=== PATIENT | male | born 1950 | race Caucasian/White ===

== ENCOUNTER 2017-02-26 11:22 | Observation (INO) | payer MEDICARE, MEDICAID ==
[~2017-02-26] VITALS: Ht 167.6 cm; Wt 75.0 kg
[~2017-02-26 11:22] MED LIST: ANTIVERT PO; CIPROFLOXACN500 MG PO; DENIES CURRENT MEDS; DOXYCYC MONO100 M1 OR; MEDDOSEPAK PO; METRONIDAZOL500 MG PO; NO HOME MEDS; PREDNISONE20 MG OR; PROAIR HFA IN; STERAPRED DS10 MG PO; TORADOL PO; ULTRAM50 M1 PO; ULTRAM50 MG OR; ULTRAM50 MG PO; VENTOLIN HFA IN; ZOFRAN ODT4 MG OR; ZOFRAN ODT4 MG PO; ZPAK PO
--- NOTE | 2017-02-26 11:40 | NUR ---
TO ROOM BY WHEELCHAIR. NURSE BEDSIDE REPORT. IN GOWN AND POSITIONED TO COMFORT
[2017-02-26 12:32] LABS: HEMATOCRIT 42.3 % (39.0-50.0); HEMOGLOBIN 15.2 g/dl (14.0-18.0); IMMATURE GRANULOCYTES 0.4 % (0.0-1.0); MEAN CELL VOLUME 88.1 fL CALC (80.0-100.0); MEAN CORPUSCULAR HGB 31.7 pG CALC (26.0-32.0); MEAN CORPUSCULAR HGB CONC 35.9 g/L CALC (32.0-36.0); NEUT# 7.64 thou/uL (1.82-7.42); RED BLOOD COUNT 4.8 mill/uL (4.70-6.10); RED CELL DISTRI WIDTH 12.6 % (11.5-15.5)
--- NOTE | 2017-02-26 12:44 | NUR ---
PT WITH IV ESTABLISHED, MEDS PROVIDED FOR PAIN RELIEF.
[2017-02-26 12:49] LABS: ALBUMIN 4.6 g/dL (3.2-5.0); ALKALINE PHOSPHATASE 75 u/l (38-126); AMYLASE 88 u/l (30-110); ANION GAP 17 (6-22 (CALC)); BILIRUBIN, TOTAL 0.9 mg/dL (0.0-1.4); BUN 17 mg/dL (8-23); BUN/CREATININE RATIO 21 (12-20 (CALC)); CALCIUM 8.6 mg/dL (8.4-10.2); CARBON DIOXIDE 23 mmol/l (22-30); CHLORIDE 107 mmol/l (95-108); CREATININE 0.8 mg/dL (0.7-1.3); GFR > 60 ML/MIN (>=60 (CALC)); GFR FOR AFR.AMER. > 60 ML/MIN (>=60 (CALC)); GLUCOSE 163 mg/dL (82-115); LIPASE 53 u/l (23-300); POTASSIUM 3.3 mmol/l (3.5-5.1); SGOT/AST 49 u/l (19-48); SGPT/ALT 43 u/l (11-66); SODIUM 143 mmol/l (137-146); TOTAL PROTEIN 7.7 g/dL (6.3-8.2)
--- NOTE | 2017-02-26 14:04 | NUR ---
PT REFUSING TO GIVE A URINE SAMPLE UNLESS WE GIVE HIM SOMETHING TO DRINK. PT ADVISED OF NPO STATUS FOR ABD PAIN. PT LAYING IN BED W/OUT S/S OF DISTRESS.
--- NOTE | 2017-02-26 14:31 | NUR ---
URINE COLLECTED. PT IN PAIN "FROM GIVING URINE SAMPLE". ER AWARE.
[2017-02-26 14:53] LABS: URINE BILIRUBIN - DIPSTICK NEGATIVE (NEGATIVE); URINE BLOOD DIPSTICK NEGATIVE (NEGATIVE); URINE CLARITY CLEAR; URINE COLOR YELLOW; URINE GLUCOSE - DIPSTICK NEGATIVE (NEGATIVE); URINE KETONE 15 mg/dL (NEGATIVE); URINE LEUK ESTERASE NEGATIVE (NEGATIVE); URINE NITRITE - DIPSTICK NEGATIVE (Negative); URINE PH 5.5 (4.5-8.0); URINE PROTEIN - DIPSTICK TRACE mg/dL (NEG-TRACE); URINE SPECIFIC GRAVITY 1.025; URINE UROBILINOGEN - DIPSTICK 0.2 E.U./dL (0.2)
--- NOTE | 2017-02-26 15:28 | NUR ---
SBAR PRINTED TO FLOOR
--- NOTE | 2017-02-26 16:10 | NUR ---
PT ARRIVED TO FLOOR VIA STRETCHER ACCOMPANIED BY RENATE [place]. AMBULATED TO BED WITH 2 STAFF ASSIST. PT UNSTEADY ON FEET. SLURRING WORDS. FALL PRECAUTIONS REINFORCED. BED ALARM SET FOR SAFETY. PT UNABLE TO STAY AWAKE FOR QUESTIONING. UNABLE TO GATHER HISTORY AT THIS TIME. ASSESSMENT COMPLETED. DENIES PAIN. CALL LIGHT REVIEWED AND IN REACH.
--- NOTE | 2017-02-26 16:20 | NUR ---
REPORT PROVIDED TO KAT, PT TAKEN TO FLOOR WITHOUT INCIDENT.
[2017-02-26 16:21] VITALS: BP 135/71
[2017-02-26 18:48] VITALS: BP 125/69
--- NOTE | 2017-02-26 19:25 | NUR ---
PT. IS RESTING IN BED WITH NO DISTRESS NOTED. ASSESSMENT COMPLETED. IV SITE PATENT TO LEFT HAND WITH IVF INFUSING. UPDATED WITH POC. CALL LIGHT IS IN REACH. WILL CONTINUE TO MONITOR.
--- NOTE | 2017-02-26 19:36 | NUR ---
DR. CORRALES IN TO SEE PT. AND UPDATED ON POC.
--- NOTE | 2017-02-26 23:10 | NUR ---
PT. RESTING IN BED WITH EYES CLOSED, NO DISTRESS NOTED. RESP EVEN AND UNLABORED. CALL LIGHT IS IN REACH.
[2017-02-27] VITALS (8 sets, daily range): BP systolic 110–128; BP diastolic 67–82
--- NOTE | 2017-02-27 03:10 | NUR ---
PT. RESTING IN BED WITH EYES CLOSED, RESP EVEN AND UNLABORED. CALL LIGHT IS IN REACH. WILL CONTINUE TO MONITOR.
--- NOTE | 2017-02-27 04:42 | NUR ---
PT. VOIDED 450 ML OF CLEAR NIRU URINE. PT. DENIES ANY NEEDS. CALL LIGHT IS IN REACH. WILL CONTINUE TO MONITOR.
--- NOTE | 2017-02-27 05:30 | NUR ---
PT. RESTING IN BED WITH EYES CLOSED, NO DISTRESS NOTED. RESP EVEN AND UNLABORED. CALL LIGHT IS IN REACH.
--- NOTE | 2017-02-27 07:50 | NUR ---
ASSESSMENT IS COMPLETED> ABD IS SOFT WITH ACTIVE BS. IV SITE IS FREE FROM REDNESS OR EDEMA. PT WANTS A CUP OF COFFEE THIS AM. NO DISTRESS NOTED/. CONTINUE TO OBSERVE AND MONITOR.
--- NOTE | 2017-02-27 08:30 | NUR ---
PT TRANSPORTED TO OR VIA STRETCHER ACCOMPANIED BY STAFF. IV SITE IS FREE FROM REDNESS OR EDEMA.
--- NOTE | 2017-02-27 10:35 | NUR ---
PT ARRIVED BACK FROM OR. VIA STRETCHER ACCOMPANIED BY STAFF. IV SITE IS INTACT, NO REDNESS OR EDEMA. NO DRESSING ON ABD IS SECURED WITH DERMABOND. CONTINUE TO OBSERVE AND MONITOR. SCD'S IN PLACE.
--- NOTE | 2017-02-27 12:15 | NUR ---
PT IS RELAXING IN BED WITH NO DISTRESS NOTED. IV SITE IS FREE FROM REDNESS OR EDEMA. CONTINUE TO OSBERVE AND MONITOR.
--- NOTE | 2017-02-27 14:09 | NUR ---
LEFT A MESSAGE FOR PT'S DAUGHTER TO CALL BACK PT WILL BE READY FOR DISCHARGE. IV SITE IS DISCONTINUED
--- NOTE | 2017-02-27 14:40 | NUR ---
PT AMBULATED OFF THE UNIT TO MEET HIS DAUGHTER FOR DISCHARGE. IV SITE DISCONTINUED CATHETER INTACT. CONTINUE TO OSBERVE AND MONITOR.
--- NOTE | 2017-02-27 14:43 | NUR ---
Discharge instructions given. Patient verbalizes understanding of same. Discharged in stable condition via Wheelchair to Home with family. All belongings sent with pt.
== END 2017-02-27 14:40 | disposition home or self-care (01) ==
LOC: ED 11:22 → ED-I 14:32 → ED 15:23 → MS2 15:24
PROVIDERS: Family Medicine; ADMIT Surgery; ATTEND Surgery
PROC: 0WQF0ZZ Repair Abdominal Wall, Open Approach (ICD-10-PCS; principal; 2017-02-27)
DX: K42.0 Umbilical hernia with obstruction, without gangrene (principal); J44.9 Chronic obstructive pulmonary disease, unspecified; M19.90 Unspecified osteoarthritis, unspecified site; F17.290 Nicotine dependence, other tobacco product, uncomplicated
CPT/HCPCS: J2060; J2710; Q9967

== ENCOUNTER 2021-02-13 17:16 | Emergency (ER) | payer MEDICARE, MEDICAID ==
[~2021-02-13] VITALS: Ht 167.6 cm; Wt 68.0 kg
--- NOTE | 2021-02-13 17:20 | NUR ---
PT AMBULATORY TO ROOM # 9 FOR BEDSIDE TRIAGE
[2021-02-13 18:36] LABS: HEMATOCRIT 47.6 % (39.0-50.0); HEMOGLOBIN 16.4 g/dl (14.0-18.0); IMMATURE GRANULOCYTES 0.2 % (0.0-5.0); MEAN CELL VOLUME 89.5 fL CALC (80.0-100.0); MEAN CORPUSCULAR HGB 30.8 pG CALC (26.0-32.0); MEAN CORPUSCULAR HGB CONC 34.5 g/dL CAL (32.0-36.0); NEUT# 4.14 thou/uL (1.82-7.42); RED BLOOD COUNT 5.32 mill/uL (4.70-6.10); RED CELL DISTRI WIDTH 12.9 % (11.5-15.5)
[2021-02-13 18:55] LABS: ALBUMIN 3.9 g/dL (3.2-5.0); ALKALINE PHOSPHATASE 84 u/l (38-126); ANION GAP 15 (6-22 (CALC)); BILIRUBIN, TOTAL 0.5 mg/dL (0.0-1.4); BUN 15 mg/dL (8-23); BUN/CREATININE RATIO 17 (12-20 (CALC)); CARBON DIOXIDE 23 mmol/l (22-30); CHLORIDE 101 mmol/l (95-108); CREATININE 0.9 mg/dL (0.7-1.3); GFR > 60 ML/MIN (>=60 (CALC)); GFR FOR AFR.AMER. > 60 ML/MIN (>=60 (CALC)); POTASSIUM 3.7 mmol/l (3.5-5.1); SGOT/AST 55 u/l (19-48); SODIUM 135 mmol/l (137-146); TOTAL PROTEIN 7.2 g/dL (6.3-8.2)
[2021-02-13 19:06] LABS: MYOGLOBIN 31 ng/mL (0 - 121)
--- NOTE | 2021-02-13 22:00 | NUR ---
RESTING QUIETLY AWAITING DISPO.
[2021-02-13 23:00] VITALS: BP 116/78
--- NOTE | 2021-02-13 23:15 | NUR ---
PT ASSIGNED ROOM AND WAS AWARE OF PLANNED ADMISSION, HOWEVER AT THIS TIME; PT DECIDES TO LEAVE AMA. UNABLE TO COMPLETE ADMISSION PROCESS. SEE ER RECORD FOR FURTHER DETAIL.
--- NOTE | 2021-02-13 23:15 | NUR ---
Patient decides to leave AMA. Multiple attempts made to ecourage patient to remain here for continued treatment. Explained to patient all risks of leaving against medical advice including . Pt verbalized understanding of all risks. Pt also encouraged to return to [facility] at any time, especially if symptoms continue or become worse. Pt verbalized understanding.
== END 2021-02-13 23:15 | disposition left against medical advice (07) ==
LOC: ED 17:16 → ED-I 21:20 → ED 21:36 → MS2 21:46 → ED 21:46 → MS2 23:15 → ED 23:15
PROVIDERS: Family Medicine
DX: R07.9 Chest pain, unspecified (principal); U07.1 COVID-19; F17.210 Nicotine dependence, cigarettes, uncomplicated; Z91.19 Patient's noncompliance with other medical treatment and regimen
CPT/HCPCS: Q9967

== ENCOUNTER 2023-03-20 11:57 | Emergency (ER) | payer MEDICARE, MEDICAID ==
[~2023-03-20] VITALS: Ht 170.2 cm; Wt 70.0 kg
[2023-03-20 14:22] LABS: BASO% 0.8 % (0-3); EOS% 6.8 % (0-8); IMMATURE GRANULOCYTES 0.2 % (0.0-5.0); LYMPH% 25.1 % (15-41); MEAN CORPUSCULAR HGB 31.4 pG CALC (26.0-32.0); MEAN CORPUSCULAR HGB CONC 33.8 g/dL CAL (32.0-36.0); MONO% 7.7 % (2-13); NEUT# 6.99 thou/uL (1.82-7.42); NEUT% 59.4 % (42-76); RED BLOOD COUNT 3.69 mill/uL (4.70-6.10)
[2023-03-20 14:40] LABS: HEMATOCRIT 34.3 % (39.0-50.0); HEMOGLOBIN 11.6 g/dl (14.0-18.0)
[2023-03-20 14:59] LABS: ALBUMIN 3.7 g/dL (3.2-5.0); ALKALINE PHOSPHATASE 105 u/l (38-126); ANION GAP 11 (6-22 (CALC)); BILIRUBIN, TOTAL 0.6 mg/dL (0.2-1.3); BUN 23 mg/dL (8-23); BUN/CREATININE RATIO 26 (12-20 (CALC)); CARBON DIOXIDE 24 mmol/l (22-30); CHLORIDE 107 mmol/l (95-108); CREATININE 0.9 mg/dL (0.7-1.3); GFR FOR AFR.AMER. > 60 ML/MIN (>=60 (CALC)); GFR OTHER RACES > 60 ML/MIN (>=60 (CALC)); SGOT/AST 34 u/l (19-48); SODIUM 137 mmol/l (137-146); TOTAL PROTEIN 8.5 g/dL (6.3-8.2)
[2023-03-20 15:02] LABS: POTASSIUM 4.7 mmol/l (3.5-5.1)
[2023-03-20] MEDS ORDERED: KEFLEX500 MG PO (16:01)
[2023-03-20 16:25] VITALS: BP 151/65
== END 2023-03-20 16:25 | disposition left against medical advice (07) ==
LOC: ED 11:57
PROVIDERS: Family Medicine
DX: L03.116 Cellulitis of left lower limb (principal); L02.612 Cutaneous abscess of left foot; S90.862A Insect bite (nonvenomous), left foot, initial encounter; J44.9 Chronic obstructive pulmonary disease, unspecified; F17.290 Nicotine dependence, other tobacco product, uncomplicated; W57.XXXA Bitten or stung by nonvenomous insect and other nonvenomous arthropods, initial encounter

== ENCOUNTER 2024-08-21 04:02 | Inpatient (IN) | payer MEDICARE, MEDICAID ==
[~2024-08-21] VITALS: Ht 170.2 cm; Wt 78.0 kg
[2024-08-21] VITALS (15 sets, daily range): BP systolic 90–152; BP diastolic 54–80
[~2024-08-21 04:02] MED LIST changes: +KEFLEX500 MG PO
[2024-08-21] MEDS ORDERED: ASPIRIN 81 MG/TAB PO ONE (04:10)
[2024-08-21] MEDS ORDERED: NITROGLYCERIN 2% OINT UD 1 GM/PAK TD ONE (04:10)
[2024-08-21 04:42] LABS: BASO% 0.1 % (0-3); IMMATURE GRANULOCYTES 0.6 % (0.0-5.0); MEAN CELL VOLUME 90.1 fL CALC (80.0-100.0); MEAN CORPUSCULAR HGB 31.1 pG CALC (26.0-32.0); MEAN CORPUSCULAR HGB CONC 34.6 g/dL CAL (32.0-36.0); NEUT# 13.45 thou/uL (1.82-7.42); NEUT% 78.6 % (42-76); RED BLOOD COUNT 5.14 mill/uL (4.70-6.10); RED CELL DISTRI WIDTH 12.6 % (11.5-15.5)
[2024-08-21 04:53] LABS: ALBUMIN 3.9 g/dL (3.2-5.0); CREATININE 1.1 mg/dL (0.7-1.3); TOTAL PROTEIN 7.2 g/dL (6.3-8.2)
[2024-08-21 05:04] LABS: BILIRUBIN, TOTAL 1.5 mg/dL (0.2-1.3); POTASSIUM 3.5 mmol/l (3.5-5.1)
[2024-08-21 05:05] LABS: D-DIMER 1.71 mg/L (0.19-0.60); HEMATOCRIT 46.3 % (39.0-50.0); LYMPH% 11.7 % (15-41)
[2024-08-21 05:07] LABS: PROTHROMBIN TIME 11.1 SECONDS (9.0-12.5)
[2024-08-21] MEDS ORDERED: SODIUM CHLORIDE 0.9% 1,000 ML IV ONE ×3 (05:15→07:15)
[2024-08-21] MEDS ORDERED: methylPREDNISolone Sod Succ 40 MG/ML SDV IV ONE (05:35)
[2024-08-21] MEDS ORDERED: DOXYCYCLINE HYCLATE 100 MG in SODIUM CHLORIDE 0.9% 100 ML IV ONE (05:35)
[2024-08-21] MEDS ORDERED: ONDANSETRON HCl 4 MG/2 ML SDV IV ONE (07:15)
[2024-08-21] MEDS ORDERED: KETOROLAC TROMETHAMINE 30 MG/ML SDV IV ONE (07:15)
[2024-08-21] MEDS ORDERED: MAGNESIUM HYDROXIDE 30 ML UDC PO PRN (09:05)
[2024-08-21] MEDS ORDERED: SODIUM CHLORIDE 0.9% 1,000 ML IV PRN (09:05)
[2024-08-21] MEDS ORDERED: ACETAMINOPHEN 325 MG/TAB PO PRN (09:05)
[2024-08-21] MEDS ORDERED: IPRATROPIUM-Albuterol 0.5MG-2.5MG/3 ML NEB PRN (09:10)
[2024-08-21] MEDS ORDERED: HYDROcodone 5 MG/Acetaminophen 325 MG/COMBO PO PRN (10:55)
[2024-08-21] MEDS ORDERED: AZITHROMYCIN 500 MG in SODIUM CHLORIDE 0.9% 250 ML IV SCH (13:00)
[2024-08-21] MEDS ORDERED: methylPREDNISolone Sod Succ 40 MG/ML SDV IV SCH (21:00)
[2024-08-21] MEDS ORDERED: ENOXAPARIN SODIUM 40 MG/0.4 ML SYR SC SCH (21:00)
[2024-08-22] VITALS (9 sets, daily range): BP systolic 126–165; BP diastolic 78–116
[2024-08-22 05:38] LABS: BASO% 0.1 % (0-3); IMMATURE GRANULOCYTES 0.4 % (0.0-5.0); LYMPH% 8.6 % (15-41); MEAN CELL VOLUME 94.4 fL CALC (80.0-100.0); MEAN CORPUSCULAR HGB 31.8 pG CALC (26.0-32.0); MEAN CORPUSCULAR HGB CONC 33.7 g/dL CAL (32.0-36.0); MONO% 7.2 % (2-13); NEUT# 11.45 thou/uL (1.82-7.42); NEUT% 83.7 % (42-76); RED BLOOD COUNT 3.96 mill/uL (4.70-6.10)
[2024-08-22 05:44] LABS: HEMATOCRIT 37.4 % (39.0-50.0); HEMOGLOBIN 12.6 g/dl (14.0-18.0)
[2024-08-22 05:51] LABS: CREATININE 0.7 mg/dL (0.7-1.3); TOTAL PROTEIN 5.9 g/dL (6.3-8.2)
[2024-08-22 05:53] LABS: ALBUMIN 2.9 g/dL (3.2-5.0); BILIRUBIN, TOTAL 0.7 mg/dL (0.2-1.3)
[2024-08-22] MEDS ORDERED: PANTOPRAZOLE SODIUM Sesquihydr 40 MG/TAB PO SCH (15:00)
[2024-08-22] MEDS ORDERED: SODIUM CHLORIDE 0.9% 250 ML IV ONE (15:13)
[2024-08-23 00:24] VITALS: BP 165/93
[2024-08-23 04:24] VITALS: BP 156/87
[2024-08-23 05:43] LABS: BASO% 0.2 % (0-3); HEMATOCRIT 39.2 % (39.0-50.0); HEMOGLOBIN 13.3 g/dl (14.0-18.0); IMMATURE GRANULOCYTES 2.3 % (0.0-5.0); MEAN CELL VOLUME 93.6 fL CALC (80.0-100.0); MEAN CORPUSCULAR HGB 31.7 pG CALC (26.0-32.0); MEAN CORPUSCULAR HGB CONC 33.9 g/dL CAL (32.0-36.0); MONO% 6.6 % (2-13); NEUT% 79.9 % (42-76); RED BLOOD COUNT 4.19 mill/uL (4.70-6.10); RED CELL DISTRI WIDTH 12.7 % (11.5-15.5)
[2024-08-23 05:49] LABS: ALBUMIN 3.2 g/dL (3.2-5.0); BILIRUBIN, TOTAL 0.7 mg/dL (0.2-1.3); CREATININE 0.7 mg/dL (0.7-1.3); MAGNESIUM 2.4 mg/dL (1.6-2.3); POTASSIUM 3.9 mmol/l (3.5-5.1); TOTAL PROTEIN 6.5 g/dL (6.3-8.2)
[2024-08-23 07:45] VITALS: BP 153/84
[2024-08-23] MEDS ORDERED: cefTRIAXone SODIUM 2 GM in SODIUM CHLORIDE 0.9% 100 ML IV SCH (08:00)
[2024-08-23] MEDS ORDERED: LEVOFLOXACIN750 MG PO (11:41)
[2024-08-23] MEDS ORDERED: PREDNISONE10 MG PO (11:42)
[2024-08-23] MEDS ORDERED: VENTOLIN HFA108 MCG IN (11:43)
== END 2024-08-23 15:11 | disposition home or self-care (01) | DRG 871 ==
LOC: ED 04:02 → ED-I 04:54 → ED 09:03 → MS2 09:04
PROVIDERS: Emergency Medicine; Nurse Practitioner Family; ADMIT Internal Medicine; ATTEND Internal Medicine
DX: A40.3 Sepsis due to Streptococcus pneumoniae (principal); J18.9 Pneumonia, unspecified organism; R65.20 Severe sepsis without septic shock; J96.01 Acute respiratory failure with hypoxia; J44.0 Chronic obstructive pulmonary disease with (acute) lower respiratory infection; J44.1 Chronic obstructive pulmonary disease with (acute) exacerbation; I95.9 Hypotension, unspecified; F15.10 Other stimulant abuse, uncomplicated; F17.290 Nicotine dependence, other tobacco product, uncomplicated; Z20.822 Contact with and (suspected) exposure to COVID-19
CPT/HCPCS: J0456; J0696; J1650; Q9967

== ENCOUNTER 2024-08-31 14:26 | Observation (INO) | payer MEDICARE, MEDICAID ==
[~2024-08-31] VITALS: Ht 170.2 cm; Wt 67.4 kg
[2024-08-31] VITALS (30 sets, daily range): BP systolic 97–185; BP diastolic 55–107
[~2024-08-31 14:26] MED LIST changes: +LEVOFLOXACIN750 MG PO; +PREDNISONE10 MG PO; +VENTOLIN HFA108 MCG IN
[2024-08-31] MEDS ORDERED: ONDANSETRON HCl 4 MG/2 ML SDV IV STA (16:01)
[2024-08-31] MEDS ORDERED: MORPHINE SULFATE 4 MG/ML VIAL IV STA (16:01)
[2024-08-31] MEDS ORDERED: SODIUM CHLORIDE 0.9% 1,000 ML IV ONE ×2 (16:10→18:10)
[2024-08-31 16:24] LABS: URINE BILIRUBIN - DIPSTICK Negative (NEGATIVE); URINE BLOOD DIPSTICK Trace-lysed (NEGATIVE); URINE GLUCOSE - DIPSTICK >=1000 mg/dL (NEGATIVE); URINE KETONE 15 mg/dL (NEGATIVE); URINE LEUK ESTERASE Negative (NEGATIVE); URINE NITRITE - DIPSTICK Negative (Negative); URINE PROTEIN - DIPSTICK Negative (NEG-TRACE); URINE UROBILINOGEN - DIPSTICK 0.2 E.U./dL (0.2)
[2024-08-31 16:25] LABS: URINE COLOR Yellow
[2024-08-31 16:28] LABS: BASO% 0.1 % (0-3); EOS% 0.1 % (0-8); IMMATURE GRANULOCYTES 0.4 % (0.0-5.0); MEAN CELL VOLUME 90.4 fL CALC (80.0-100.0); MEAN CORPUSCULAR HGB 30.4 pG CALC (26.0-32.0); MEAN CORPUSCULAR HGB CONC 33.6 g/dL CAL (32.0-36.0); MONO% 1.4 % (2-13); NEUT# 12.22 thou/uL (1.82-7.42); RED BLOOD COUNT 6.12 mill/uL (4.70-6.10); RED CELL DISTRI WIDTH 12.6 % (11.5-15.5)
[2024-08-31 16:29] LABS: HEMATOCRIT 55.3 % (39.0-50.0); HEMOGLOBIN 18.6 g/dl (14.0-18.0)
[2024-08-31 16:53] LABS: ALBUMIN 4.6 g/dL (3.2-5.0); BILIRUBIN, TOTAL 1.8 mg/dL (0.2-1.3); POTASSIUM 5.1 mmol/l (3.5-5.1); TOTAL PROTEIN 8.6 g/dL (6.3-8.2)
[2024-08-31] MEDS ORDERED: INSULIN REGULAR (HUMAN) 100 UNIT/ML INJ IV ONE (18:10)
[2024-08-31 19:25] LABS: BILIRUBIN, TOTAL 1.1 mg/dL (0.2-1.3); CREATININE 0.8 mg/dL (0.7-1.3); POTASSIUM 5.1 mmol/l (3.5-5.1)
[2024-08-31 19:26] LABS: ALBUMIN 2.9 g/dL (3.2-5.0); TOTAL PROTEIN 5.7 g/dL (6.3-8.2)
[2024-08-31] MEDS ORDERED: ACETAMINOPHEN 325 MG/TAB PO PRN (20:00)
[2024-08-31] MEDS ORDERED: SODIUM CHLORIDE 0.9% 1,000 ML IV SCH (20:00)
[2024-08-31] MEDS ORDERED: ONDANSETRON HCl 4 MG/2 ML SDV IV PRN (20:00)
[2024-08-31] MEDS ORDERED: Zaleplon 5 MG/CAP PO PRN (20:00)
[2024-08-31] MEDS ORDERED: MAGNESIUM HYDROXIDE 30 ML UDC PO PRN (20:00)
[2024-08-31] MEDS ORDERED: MORPHINE SULFATE 4 MG/ML VIAL IV PRN (20:10)
[2024-08-31] MEDS ORDERED: ENOXAPARIN SODIUM 40 MG/0.4 ML SYR SC SCH (21:00)
[2024-08-31] MEDS ORDERED: INSULIN LISPRO 100 UNITS/ML ML SC SCH (21:00)
[2024-09-01] VITALS (13 sets, daily range): BP systolic 93–153; BP diastolic 49–81
[2024-09-01 06:02] LABS: BASO% 0.2 % (0-3); EOS% 0.4 % (0-8); IMMATURE GRANULOCYTES 0.3 % (0.0-5.0); MEAN CELL VOLUME 91.8 fL CALC (80.0-100.0); MEAN CORPUSCULAR HGB 31.9 pG CALC (26.0-32.0); MEAN CORPUSCULAR HGB CONC 34.8 g/dL CAL (32.0-36.0); MONO% 6.5 % (2-13); NEUT# 10.41 thou/uL (1.82-7.42); NEUT% 66.6 % (42-76); RED BLOOD COUNT 4.61 mill/uL (4.70-6.10); RED CELL DISTRI WIDTH 12.7 % (11.5-15.5)
[2024-09-01 06:04] LABS: HEMATOCRIT 42.3 % (39.0-50.0); HEMOGLOBIN 14.7 g/dl (14.0-18.0)
[2024-09-01 06:11] LABS: BILIRUBIN, TOTAL 0.8 mg/dL (0.2-1.3); CREATININE 0.8 mg/dL (0.7-1.3); POTASSIUM 4.6 mmol/l (3.5-5.1); TOTAL PROTEIN 5.8 g/dL (6.3-8.2)
[2024-09-01] MEDS ORDERED: INSULIN GLARGINE 100 UNITS/ML SC SCH (11:30)
[2024-09-01] MEDS ORDERED: levoFLOXacin hemihydrate 250 MG/TAB PO SCH (15:00)
[2024-09-02 04:25] VITALS: BP 110/61
[2024-09-02 05:42] LABS: BASO% 0.4 % (0-3); EOS% 0.7 % (0-8); HEMATOCRIT 38.7 % (39.0-50.0); HEMOGLOBIN 13.5 g/dl (14.0-18.0); IMMATURE GRANULOCYTES 0.2 % (0.0-5.0); LYMPH% 30.3 % (15-41); MEAN CELL VOLUME 91.5 fL CALC (80.0-100.0); MEAN CORPUSCULAR HGB 31.9 pG CALC (26.0-32.0); MEAN CORPUSCULAR HGB CONC 34.9 g/dL CAL (32.0-36.0); MONO% 6.8 % (2-13); NEUT# 5.49 thou/uL (1.82-7.42); NEUT% 61.6 % (42-76); RED BLOOD COUNT 4.23 mill/uL (4.70-6.10); RED CELL DISTRI WIDTH 12.6 % (11.5-15.5)
[2024-09-02 05:52] LABS: ALBUMIN 2.6 g/dL (3.2-5.0); BILIRUBIN, TOTAL 0.8 mg/dL (0.2-1.3); CREATININE 0.7 mg/dL (0.7-1.3); MAGNESIUM 1.9 mg/dL (1.6-2.3); POTASSIUM 3.7 mmol/l (3.5-5.1); TOTAL PROTEIN 5.2 g/dL (6.3-8.2)
[2024-09-02 06:33] VITALS: BP 150/94
[2024-09-02 07:25] VITALS: BP 150/94
[2024-09-02] MEDS ORDERED: METFORMIN HYD1000 MG PO (10:57)
[2024-09-03] MEDS ORDERED: metFORMIN HYDROCHLORIDE 500 MG/TAB PO SCH (07:30)
== END 2024-09-02 12:52 | disposition home or self-care (01) ==
LOC: ED 14:26 → ED-I 19:38 → ED 21:44 → MS2 21:45
PROVIDERS: Emergency Medicine; Nurse Practitioner Family; ADMIT Internal Medicine; ATTEND Internal Medicine
DX: E11.65 Type 2 diabetes mellitus with hyperglycemia (principal); T38.0X5A Adverse effect of glucocorticoids and synthetic analogues, initial encounter; J18.9 Pneumonia, unspecified organism; J44.0 Chronic obstructive pulmonary disease with (acute) lower respiratory infection; R78.81 Bacteremia; E11.649 Type 2 diabetes mellitus with hypoglycemia without coma; I10 Essential (primary) hypertension; F17.200 Nicotine dependence, unspecified, uncomplicated; Z91.199 Patient's noncompliance with other medical treatment and regimen due to unspecified reason
CPT/HCPCS: J1650; J1815; J2405; Q9967